=== PATIENT | male | born 1980 | race Caucasian/White ===

== ENCOUNTER 2017-09-13 18:38 | Emergency (ER) | payer SELFPAY ==
[2017-09-13] MEDS ORDERED: ONDANSETRON 4 MG TAB.RAPDIS PO ONE (19:50)
[2017-09-13] MEDS ORDERED: FAMOTIDINE 20 MG TABLET PO ONE (19:50)
[2017-09-13] MEDS ORDERED: RINGERS SOLUTION,LACTATED 1,000 ML IV ONE (19:52)
--- NOTE | 2017-09-13 19:52 | ER Document Report ---
ED Medical Screen (RME) - General Chief Complaint: Rectal Bleeding Stated Complaint: RECTAL BLEEDING Time Seen by Provider: 09/13/17 19:45 Notes: RAPID MEDICAL EVALUATION DISCLOSURE I have seen this patient as part of a Rapid Medical Evaluation and, if applicable, placed any initially appropriate orders. The patient will be seen and fully evaluated, including a full history and physical exam, by a provider ( in Main ED or Fast Track) when a room becomes available. 36-year-old male here with complaints of nausea and vomiting ongoing for the past few months and maroon colored blood in his stools over the past few days. Today he has been lightheaded and fatigued but has not passed out. He has a history of acid reflux and used to take daily medication many months ago but has taken it in several months. He denies any history of esophageal varices liver disease peptic ulcers. He does have a history of external hemorrhoids but states that it has not been flaring up. He denies abdominal pain. Does not take blood thinners. EXAM Minimally tachycardic No abdominal TTP TRAVEL OUTSIDE OF THE [place] IN LAST 30 DAYS: No - Related Data Allergies/Adverse Reactions: No Known Allergies Allergy (Verified 05/17/15 19:21) Past Medical History - Social History Chew tobacco use (# tins/day): No Frequency of alcohol use: None Drug Abuse: None - Past Medical History Cardiac Medical History: Denies: Hx Coronary Artery Disease, Hx Heart Attack, Hx Hypertension Pulmonary Medical History: Reports: Hx Asthma - A BABY Denies: Hx Bronchitis, Hx COPD, Hx Pneumonia Neurological Medical History: Denies: Hx Cerebrovascular Accident, Hx Seizures Renal/ Medical History: Denies: Hx Peritoneal Dialysis Musculoskeltal Medical History: Denies Hx Arthritis, Reports Hx Musculoskeletal Deformity, Reports Hx Musculoskeletal Trauma Traumatic Medical History: Reports: Hx Fractures Past Surgical History: Reports: Hx Orthopedic Surgery - Immunizations Immunizations up to date: Yes Hx Diphtheria, Pertussis, Tetanus Vaccination: Yes Physical Exam - Vital signs Vitals: Temp Pulse Resp BP Pulse Ox 99.1 F 107 H 18 142/99 H 100 09/13/17 18:44 09/13/17 18:44 09/13/17 18:44 09/13/17 18:44 09/13/17 18:44 Course - Vital Signs Vital signs: Temp Pulse Resp BP Pulse Ox 99.1 F 107 H 18 142/99 H 100 09/13/17 18:44 09/13/17 18:44 09/13/17 18:44 09/13/17 18:44 09/13/17 18:44
[2017-09-13 20:16] LABS: ABSOLUTE LYMPHOCYTES (AUTO) 2.3 10^3/uL (0.5-4.7); ABSOLUTE MONOCYTES (AUTO) 0.5 10^3/uL (0.1-1.4); ABSOLUTE NEUT (AUTO) 8.3 10^3/uL (1.7-8.2); BASOPHILS % (AUTO) 0.3 % (0-2); EOSINOPHILS % (AUTO) 0.4 % (0-6); HEMATOCRIT 46.9 % (37.9-51.0); HEMOGLOBIN 16.2 g/dL (13.5-17.0); LYMPHOCYTES % (AUTO) 20.3 % (13-45); MEAN CORPUSCULAR HEMOGLOBIN 31.7 pg (27.0-33.4); MEAN CORPUSCULAR HGB CONC 34.5 g/dL (32.0-36.0); MEAN CORPUSCULAR VOLUME 92 fl (80-97); MONOCYTES % (AUTO) 4.6 % (3-13); PLATELET COUNT 199 10^3/uL (150-450); RED CELL DISTRIBUTION WIDTH 13.2 % (11.5-14.0); SEGMENTED NEUTROPHILS % (AUTO) 74.4 % (42-78); TOTAL CELLS COUNTED % (AUTO) 100 %; WHITE BLOOD COUNT 11.1 10^3/uL (4.0-10.5)
[2017-09-13 20:22] LABS: INTERNATIONAL RATION (INR) 0.93; PROTHROMBIN TIME 12.9 SEC (11.4-15.4)
[2017-09-13 20:36] LABS: ALANINE AMINOTRANSFERASE 27 U/L (21-72); ALKALINE PHOSPHATASE 99 U/L (38-126); ANION GAP 14 (5-19); ASPARTATE AMINO TRANSFERASE 27 U/L (17-59); BILIRUBIN,DIRECT 0.4 mg/dL (0.0-0.4); BILIRUBIN,TOTAL 0.4 mg/dL (0.2-1.3); BLOOD UREA NITROGEN 20 mg/dL (7-20); CALCIUM 10.2 mg/dL (8.4-10.2); CARBON DIOXIDE 26 mmol/L (22-30); CHLORIDE 104 mmol/L (98-107); GLUCOSE 97 mg/dL (75-110); LIPASE 186.2 U/L (23-300); POTASSIUM 4.2 mmol/L (3.6-5.0); SODIUM 143.8 mmol/L (137-145); TOTAL PROTEIN 7.8 g/dL (6.3-8.2)
--- NOTE | 2017-09-13 20:46 | ER Document Report ---
ED GI/ - General Chief Complaint: Rectal Bleeding Stated Complaint: RECTAL BLEEDING Time Seen by Provider: 09/13/17 19:45 Notes: Patient is a 36-year-old male that comes emergency room for chief complaint of bright red blood per rectum, he states he has this frequently and has been having it on and off for a while, he states he has passed a few bowel movements with a couple of clots and some dark blood as well. Patient states that he also randomly will wake up in the morning, vomited, and then go about his normal day. Frequent vomiting only in the morning, does not have any difficulty eating or nausea/vomiting during the day. Denies fever or chills. He admits to intermittent constipation and increased straining with stools. He states he has some tiredness but denies dizziness or passing out. He takes naproxen daily for his left ankle which had a reconstruction. He takes no other medications. He smokes, denies alcohol or recreational drugs. Denies family history of polyp disorder or colon cancer. TRAVEL OUTSIDE OF THE [place] IN LAST 30 DAYS: No - Related Data Allergies/Adverse Reactions: No Known Allergies Allergy (Verified 05/17/15 19:21) Past Medical History - General Information source: Patient - Social History Smoking Status: Current Every Day Smoker Chew tobacco use (# tins/day): No Frequency of alcohol use: None Drug Abuse: None Lives with: Family Family History: Arthritis, CAD, CVA, DM, Hyperlipidemia, Hypertension, Malignancy Patient has suicidal ideation: No Patient has homicidal ideation: No - Past Medical History Cardiac Medical History: Denies: Hx Coronary Artery Disease, Hx Heart Attack, Hx Hypertension Pulmonary Medical History: Reports: Hx Asthma - A BABY Denies: Hx Bronchitis, Hx COPD, Hx Pneumonia Neurological Medical History: Denies: Hx Cerebrovascular Accident, Hx Seizures Renal/ Medical History: Denies: Hx Peritoneal Dialysis Musculoskeltal Medical History: Denies Hx Arthritis, Reports Hx Musculoskeletal Deformity, Reports Hx Musculoskeletal Trauma Traumatic Medical History: Reports: Hx Fractures Past Surgical History: Reports: Hx Orthopedic Surgery - Immunizations Immunizations up to date: Yes Hx Diphtheria, Pertussis, Tetanus Vaccination: Yes Review of Systems - Review of Systems Constitutional: No symptoms reported EENT: No symptoms reported Cardiovascular: No symptoms reported Respiratory: No symptoms reported Gastrointestinal: See HPI Genitourinary: No symptoms reported Male Genitourinary: No symptoms reported Musculoskeletal: No symptoms reported Skin: No symptoms reported Hematologic/Lymphatic: No symptoms reported Neurological/Psychological: No symptoms reported Physical Exam - Vital signs Vitals: Temp Pulse Resp BP Pulse Ox 99.1 F 107 H 18 142/99 H 100 09/13/17 18:44 09/13/17 18:44 09/13/17 18:44 09/13/17 18:44 09/13/17 18:44 Interpretation: Normal - General General appearance: Appears well In distress: None - HEENT Head: Normocephalic, Atraumatic Eyes: Normal Pupils: PERRL - Respiratory Respiratory status: No respiratory distress Chest status: Nontender Breath sounds: Normal. No: Decreased air movement, Wheezing Chest palpation: Normal - Cardiovascular Rhythm: Regular Heart sounds: Normal auscultation Murmur: No - Abdominal Inspection: Normal Distension: No distension Bowel sounds: Normal Tenderness: Nontender. No: Tender, Guarding - Rectal Tenderness: No Stool: Heme positive. No: Black, Bloody Hemorrhoids: Internal - at approximately 8 o clock position - Back Back: Normal, Nontender. No: Tender - Extremities General upper extremity: Normal inspection, Nontender, Normal strength, Normal temperature General lower extremity: Normal inspection, Nontender, Normal strength, Normal temperature - Neurological Neuro grossly intact: Yes Cognition: Normal Orientation: AAOx4 Brittany Coma Scale Eye Opening: Spontaneous Dale Coma Scale Verbal: Oriented Dale Coma Scale Motor: Obeys Commands Dale Coma Scale Total: 15 Speech: Normal Motor strength normal: LUE, RUE, LLE, RLE Sensory: Normal - Psychological Associated symptoms: Normal affect, Normal mood - Skin Skin Temperature: Warm Skin Moisture: Dry Skin Color: Normal Course - Re-evaluation Re-evalutation: Patient has reported symptoms very consistent with gastritis, vomiting in the morning, frequent naproxen use, he also smokes, eat a lot of spicy food, drinks a lot of caffeine. I discussed this, patient will be placed on medications for gastritis and given recommendations to avoid these kind of problems in the future. Laboratory workup was unremarkable. He does have blood in his stool microscopically but not grossly, he also has an internal hemorrhoid on exam. Patient has had trouble with bowel movements recently. Placed on stool softener discussed hemorrhoid treatments. Discussed primary care follow-up for both gastritis and hemorrhoids. Discussed gastroneurology referral. Discussed return precautions. Patient and family state understanding and agreement. - Vital Signs Vital signs: Temp Pulse Resp BP Pulse Ox 97.9 F 78 16 128/87 H 99 09/13/17 23:08 09/13/17 23:08 09/13/17 23:08 09/13/17 23:08 09/13/17 23:08 - Laboratory Result Diagrams: 09/13/17 20:06 09/13/17 20:06 Laboratory results interpreted by me: 09/13/17 20:06 WBC 11.1 H Absolute Neutrophils 8.3 H Discharge - Discharge Clinical Impression: Rectal bleeding Vomiting Qualifiers: Vomiting type: unspecified Vomiting Intractability: non-intractable Nausea presence: with nausea Qualified Code(s): R11.2 - Nausea with vomiting, unspecified Condition: Stable Disposition: HOME, SELF-CARE Additional Instructions: There is blood in your stool but on examination you have an internal hemorrhoid. This is most likely the cause of the bleeding. Recommendation is to take the Colace stool softener as prescribed, avoid any straining with bowel movement, eat a high fiber diet, stay hydrated. This typically resolves with time. In regards to the vomiting that he get in the more's, recommend treatment of gastritis/esophagitis/reflux, you can take the Prilosec as prescribed daily, you can also take the Pepcid as needed for upper abdominal symptoms/reflux. Consider stopping the naproxen as this can worsen gastritis, avoid other things that worsen gastritis including smoking, drinking alcohol, high levels of caffeine, other NSAIDs, spicy foods. Follow-up with primary care for additional evaluation and management. If bleeding continues in your stool follow-up with the gastroenterology referral. Return for any concerning or worsening symptoms including severe abdominal pain , heavy bleeding, passing out, vomiting blood, or any other concerning symptoms. Prescriptions: Docusate Sodium [Colace 100 mg Capsule] 100 mg PO ASDIR PRN #30 capsule PRN Reason: Famotidine [Pepcid 20 mg Tablet] 20 mg PO BID #20 tablet Omeprazole 40 mg PO DAILY #30 capsule. Referrals: GASTROENTEROLOGY [Provider Group] - Follow up as needed
[2017-09-13 23:11] VITALS: BP 128/87
== END 2017-09-13 23:10 | disposition home or self-care (01) ==
LOC: ER 18:38
DX: K62.5 Hemorrhage of anus and rectum (principal); R11.2 Nausea with vomiting, unspecified; F17.200 Nicotine dependence, unspecified, uncomplicated
CPT/HCPCS: 99283; 96360; 36415; 83690; 85025; 85610; 85730; 82272; 80053; S0119; J7120

== ENCOUNTER 2019-04-25 14:01 | Emergency (ER) | payer SELFPAY ==
[2019-04-25] MEDS ORDERED: OXYCODONE-ACETAMINOPHEN 5-325 MG TABLET PO ONE (14:09)
[2019-04-25] MEDS ORDERED: LIDOCAINE 1% INJ-PF (10 MG/ML) 30 ML SDV INJ ONE (14:10)
--- NOTE | 2019-04-25 14:29 | ER Document Report ---
ED Hand/Wrist Injury - General Chief Complaint: Hand Injury Stated Complaint: LEFT HAND PAIN Time Seen by Provider: 04/25/19 14:03 Primary Care Provider: CA SHARPE DO [ACTIVE STAFF] - Follow up as needed Mode of Arrival: Ambulatory Information source: Patient Notes: Otherwise healthy 38-year-old male presenting to the emergency department with laceration to the palmar surface of his right hand near the base of the fifth digit. Patient reports he was using a table saw when the saw slipped. Patient is unsure of Tdap is up-to-date. TRAVEL OUTSIDE OF THE [place] IN LAST 30 DAYS: No - Related Data Allergies/Adverse Reactions: No Known Allergies Allergy (Verified 05/17/15 19:21) Past Medical History - General Information source: Patient - Social History Smoking Status: Never Smoker Frequency of alcohol use: None Drug Abuse: None Family History: Arthritis, CAD, CVA, DM, Hyperlipidemia, Hypertension, Malign fer - Past Medical History Cardiac Medical History: Denies: Hx Coronary Artery Disease, Hx Heart Attack, Hx Hypertension Pulmonary Medical History: Reports: Hx Asthma - A BABY Denies: Hx Bronchitis, Hx COPD, Hx Pneumonia Neurological Medical History: Denies: Hx Cerebrovascular Accident, Hx Seizures Renal/ Medical History: Denies: Hx Peritoneal Dialysis Musculoskeletal Medical History: Denies Hx Arthritis, Reports Hx Musculoskeletal Deformity, Reports Hx Musculoskeletal Trauma Traumatic Medical History: Reports: Hx Fractures Past Surgical History: Reports: Hx Orthopedic Surgery - Immunizations Immunizations up to date: Yes Hx Diphtheria, Pertussis, Tetanus Vaccination: Yes Review of Systems - Review of Systems Constitutional: No symptoms reported EENT: No symptoms reported Cardiovascular: No symptoms reported Respiratory: No symptoms reported Gastrointestinal: No symptoms reported Genitourinary: No symptoms reported Male Genitourinary: No symptoms reported Musculoskeletal: See HPI Skin: See HPI Hematologic/Lymphatic: No symptoms reported Neurological/Psychological: No symptoms reported Physical Exam - Vital signs Vitals: Temp Pulse Resp BP Pulse Ox 97.3 F 114 H 18 147/102 H 99 04/25/19 14:03 04/25/19 14:03 04/25/19 14:03 04/25/19 14:03 04/25/19 14:03 - Notes Notes: PHYSICAL EXAMINATION: GENERAL: Well-appearing, well-nourished and in no acute distress. HEAD: Atraumatic, normocephalic. EYES: Pupils equal round extraocular movements intact, conjunctiva are normal. ENT: Nares patent NECK: Normal range of motion LUNGS: No respiratory distress Musculoskeletal: Limited range of motion to right fifth digit. Significant swelling to the right hand along the fourth and fifth metacarpal area. Cap refill less than 3 seconds, slightly limited sensation to the tip of the fifth digits although there is some sensation. Limited flexion to the fifth digit. NEUROLOGICAL: Normal speech, normal gait. PSYCH: Normal mood, normal affect. SKIN: Extensive laceration to right hand that encompasses the fifth digit down into the hand. This is gaping open, there is active bleeding, the wound does not approximate well. Course - Re-evaluation Re-evalutation: Hand X-Ray 04/25/19 14:04 IMPRESSION: Comminuted fracture involving the distal 5th metacarpal and proximal phalanx with associated subluxation. There is volar and medial subluxation of the phalanx in relation to the metacarpal. Associated soft tissue laceration and swelling. 04/25/19 14:[address] Sharpe, orthopedic surgeon net web application developer, he would like primary closure to be done after wound irrigation. He will come and see the patient in the department. Wound anesthetized with 1% lidocaine, while irrigating the wound, a large congealed clot dislodged and I noticed that there was an arterial bleed. My attending came to the room to evaluate the patient. It appears there is a superficial palmar arch bleed. Pressure was applied. Reconsulted hand surgeon, Dr. Sharpe to update on patient's status including the new information of the arterial bleed. 04/25/19 15:38 After continuing to apply pressure, wound continues to bleed, gauze soaked TXA was applied, new pressure dressing was applied. After Dr. Bobo again evaluated the patient she consulted Dr. Sharpe to update him that I would not be able to do the preliminary closure due to continuous bleeding. Dr. Sharpe came to the bedside, he used cautery to stop a small area of bleeding. I then proceeded with preliminary closure of the wound with plans for patient to follow-up with Dr. Sharpe as an outpatient in his office on . During the closure, an additional small area of bleeding was noted, we attempted to stop this with the quick clot gauze but unfortunately that did not completely stop the bleed. Surgifoam was then applied which did successfully stop the bleed. The primary closure of the areas that were able to be closed was completed. Wound was then dressed, splint applied. Patient will also be s tarted on oral antibiotics. He received a dose of IV antibiotics here in the emergency department. Strict ED return precautions were discussed with patient and . - Vital Signs Vital signs: Temp Pulse Resp BP Pulse Ox 97.8 F 95 16 131/87 H 96 04/25/19 18:48 04/25/19 18:48 04/25/19 18:48 04/25/19 18:48 04/25/19 18:48 Procedures - Immobilization Right hand Pre-Proc Neuro Vasc Exam: Normal Immobilizer type: Cock-up Performed by: PCT Post-Proc Neuro Vasc Exam: Unchanged from pre-exam - Laceration/Wound Repair Right hand/fifth digit Wound length (cm): 6 - Irregular Wound's Depth, Shape: Irregular, Contused tissue Laceration pre-procedure: Sterile PPE donned Anesthetic type: 1% Lidocaine Wound explored: Clean Wound Repaired With: Sutures Suture Size/Type: 4:0 Post-procedure wound care: Splint applied Post-procedure NV exam normal: Yes - Unchanged from previous Critical Care Note - Critical Care Note Total time excluding time spent on procedures (mins): 35 - Multiple re- evaluations of extensive hand laceration including hemorrhage control. Discharge - Discharge Clinical Impression: Open fracture of right hand Qualifiers: Encounter type: initial encounter Qualified Code(s): S62.91XB - Unspecified fracture of right wrist and hand, initial encounter for open fracture Condition: Stable Disposition: HOME, SELF-CARE Additional Instructions: You are seen in the emergency department today and diagnosed with an open fracture with tendon injury to your right hand. The orthopedic surgeon, Dr. Sharpe came here and saw you. He wants you to follow-up in his [place] office . Please call them tomorrow and let them know you were seen in the emergency department and that Dr. Sharpe wants you to have an appointment and that you are an ER follow-up with patient. He wants you to keep the dressing in place and the splint in place until seen by him. Take the pain medication as prescribed. You can also take ibuprofen 600 mg every 6 hours. It is very important for you to take the antibiotics as prescribed. If any additional bleeding occurs please apply direct pressure, elevate the extremity and recheck the bleeding in 20 to 30 minutes. If at any point in time you have bleeding and are concerned please return to the emergency department for reevaluation. Prescriptions: Amox Tr/Potassium Clavulanate [Augmentin 875-125 mg Tablet] 1 tab PO BID #14 tablet Oxycodone HCl/Acetaminophen [Percocet 5-325 mg Tablet] 1 tab PO Q4H PRN #15 tab PRN Reason: Referrals: CA SHARPE DO [ACTIVE STAFF] - Follow up as needed
[2019-04-25] MEDS ORDERED: CEFAZOLIN 2 GM/D5W RTU 2 GM/50 ML RTUPB IV ONE (14:34)
--- NOTE | 2019-04-25 14:40 | RADIOLOGY REPORT (SQ) ---
EXAM DESCRIPTION: HAND RIGHT 3 VIEWS COMPLETED DATE/TIME: 04/25/2019 2:27 pm REASON FOR STUDY: laceration COMPARISON: None. EXAM PARAMETERS: NUMBER OF VIEWS: Three views. TECHNIQUE: AP, lateral and oblique radiographic images acquired of the right hand. LIMITATIONS: None. FINDINGS: MINERALIZATION: Normal. BONES: Comminuted fracture involving the distal 5th metacarpal and proximal phalanx with associated s ubluxation. There is volar and medial subluxation of the phalanx in relation to the metacarpal. No additional fractures identified. JOINTS: Fracture dislocation as above. SOFT TISSUES: Soft tissue laceration and swelling about the 5th MCP joint. OTHER: No other significant finding. IMPRESSION: Comminuted fracture involving the distal 5th metacarpal and proximal phalanx with associ ated subluxation. There is volar and medial subluxation of the phalanx in relation to the metacarpal . Associated soft tissue laceration and swelling. TECHNICAL DOCUMENTATION: JOB ID: [id number] [employer]- All Rights Reserved Reading location - IP/workstation name: [email or web address]
[2019-04-25] MEDS ORDERED: TRANEXAMIC ACID INJ/PF 1,000 MG/10 ML SDV TOP ONE (15:28)
[2019-04-25] MEDS ORDERED: CEFAZOLIN SODIUM 2 GM in DEXTROSE 5%-WATER 100 ML INJ ONE (15:30)
[2019-04-25] MEDS ORDERED: MORPHINE SULFATE 10 MG/ML INJ IV ONE ×2 (15:38→16:50)
--- NOTE | 2019-04-25 16:46 | PDOC CONSULTATION ---
Consultation Consult Date: 04/25/19 Attending physician:: HONEY VAIL Provider Consulted: CA SHARPE History of Present Illness Patient complains of: Right hand injury History of Present Illness: BALBINA ROBERT is a 38 year old male [id number] male presents emergency room after sustaining a injury at work. Patient is self-employed and subsequently his table saw buckled resulting in laceration and injury to his right hand. He was seen at the emergency room where area was gently irrigated there was notable bleeding distally along the digit. Patient notes numbness and tingling on the finger. Obvious pain with any attempted motion. Pain 5/5. Past Medical History Cardiac Medical History: Denies: Coronary Artery Disease, Myocardial Infarction, Hypertension Pulmonary Medical History: Reports: Asthma - A BABY Denies: Bronchitis, Chronic Obstructive Pulmonary Disease (COPD), Pneumonia Neurological Medical History: Denies: Seizures Musculoskeltal Medical History: Denies: Arthritis Hematology: Denies: Anemia Past Surgical History Past Surgical History: Reports: Orthopedic Surgery Social History Smoking Status: Never Smoker Family History Family History: Arthritis, CAD, CVA, DM, Hyperlipidemia, Hypertension, Malignancy Parental Family History Reviewed: No Children Family History Reviewed: No Sibling(s) Family History Reviewed.: No Medication/Allergy Home Medications: Ibuprofen 800 mg PO ASDIR PRN 05/24/15 Oxycodone HCl/Acetaminophen [Percocet 5-325 mg Tablet] 1 - 2 tab PO ASDIR PRN 05/24/15 Docusate Sodium [Colace 100 mg Capsule] 100 mg PO ASDIR PRN #30 capsule 09/13/17 Famotidine [Pepcid 20 mg Tablet] 20 mg PO BID #20 tablet 09/13/17 Omeprazole 40 mg PO DAILY #30 capsule. 09/13/17 Allergies/Adverse Reactions: No Known Allergies Allergy (Verified 05/17/15 19:21) Review of Systems Constitutional: ABSENT: chills, fever(s), headache(s), weight gain, weight loss Eyes: ABSENT: visual disturbances Ears: ABSENT: hearing changes Cardiovascular: ABSENT: chest pain, dyspnea on exertion, edema, orthropnea, palpitations Respiratory: ABSENT: cough, hemoptysis Gastrointestinal: ABSENT: abdominal pain, constipation, diarrhea, hematemesis, hematochezia, nausea, vomiting Genitourinary: ABSENT: dysuria, hematuria Musculoskeletal: PRESENT: as per HPI Integumentary: ABSENT: rash, wounds Neurological: ABSENT: abnormal gait, abnormal speech, confusion, dizziness, focal weakness, syncope Psychiatric: ABSENT: anxiety, depression, homidical ideation, suicidal ideation Endocrine: ABSENT: cold intolerance, heat intolerance, menstrual abnormalities, polydipsia, polyuria Hematologic/Lymphatic: ABSENT: easy bleeding, easy bruising, lymphadenopathy Physical Exam Vital Signs: Temp Pulse Resp BP Pulse Ox 97.3 F 114 H 18 147/102 H 99 04/25/19 14:03 04/25/19 14:03 04/25/19 14:03 04/25/19 14:03 04/25/19 14:03 Intake & Output 04/24/19 04/25/19 04/26/19 06:59 06:59 06:59 Weight 68.039 kg General appearance: PRESENT: no acute distress, well-developed, well-nourished Head exam: PRESENT: atraumatic, normocephalic Eye exam: PRESENT: conjunctiva pink, EOMI, PERRLA. ABSENT: scleral icterus Ear exam: PRESENT: normal external ear exam Mouth exam: PRESENT: moist, tongue midline Neck exam: PRESENT: full ROM. ABSENT: carotid bruit, JVD, lymphadenopathy, thyromegaly Respiratory exam: PRESENT: unlabored Cardiovascular exam: PRESENT: RRR. ABSENT: diastolic murmur, rubs, systolic murmur Pulses: PRESENT: normal dorsalis pedis pul, +2 pedal pulses bilateral Vascular exam: PRESENT: normal capillary refill GI/Abdominal exam: PRESENT: normal bowel sounds, soft. ABSENT: distended, guarding, mass, organolmegaly, rebound, tenderness Rectal exam: PRESENT: deferred Musculoskeletal exam: PRESENT: other - Right hand: Complex laceration extending from the volar ulnar aspect of the hand just proximal to the distal palmar crease extending in a ulnar direction and dorsally longitudinally along the dorsum of the proximal phalanx. Intact flexion/extension of the DIP joint however weak. Cap refill less than 2 seconds. Normal skin turgor. No active arterial bleeding there is venous bleeding noted dorsally along the PIP joint. Patient lacks two-point discrimination along the ulnar digital nerve distribut ion. Neurological exam: PRESENT: alert, awake, oriented to person, oriented to place, oriented to time, oriented to situation, CN II-XII grossly intact. ABSENT: motor sensory deficit Psychiatric exam: PRESENT: appropriate affect, normal mood. ABSENT: homicidal ideation, suicidal ideation Skin exam: PRESENT: dry, intact, warm. ABSENT: cyanosis, rash Results Impressions: Hand X-Ray 04/25/19 14:04 IMPRESSION: Comminuted fracture involving the distal 5th metacarpal and proximal phalanx with associated subluxation. There is volar and medial subluxation of the phalanx in relation to the metacarpal. Associated soft tissue laceration and swelling. Status: Image reviewed by me - I have reviewed patient's radiographs consistent with comminuted intra-articular fracture along the small finger PIP joint with bone loss Assessment & Plan - Diagnosis (1) Open fracture of fifth metacarpal bone of right hand Qualifiers: Encounter type: initial encounter Metacarpal location: neck Fracture alignment: displaced Qualified Code(s): S62.336B - Displaced fracture of neck of fifth metacarpal bone, right hand, initial encounter for open fracture Is this a current diagnosis for this admission?: Yes Plan: Patient sustained table saw injury involving the fifth MCP joint with comminution and significant bone loss along the proximal phalanx base but the metacarpal head and neck. Given the bone loss joint salvage this probably limited which could result in permanent stiffness and degenerative changes along with chronic pain however interpositional arthroplasty or fusion remain a possibility to provide if salvageable digit and function last option includes amputation. At this point patient will have the area irrigated in the emergency room and loosely reapproximated. Patient will be placed in a ulnar gutter splint and started on p.o. antibiotics. We discussed his treatment options he will consider his options and follow-up with me in the office 04/28/2019 determine appropriate operative direction. Currently I do not feel there is urgency or emergency to proceed with operative treatment given his intact backslash status and limited wound contamination. Patient will follow-up as an outpatient however he notices increasing pain swelling bleeding or issues he may contact my office to be seen sooner.
[2019-04-25] MEDS ORDERED: AMOXICILLIN TRIHYDRATE 500 MG CAPSULE PO ONE (18:16)
[2019-04-25] MEDS ORDERED: AMOXICILLIN TR/POT CLAVULANATE 500-125 MG TAB PO ONE (18:16)
[2019-04-25] MEDS ORDERED: HYDROCODONE/ACETAMINOPHEN 5-325 MG (6 TAB/ER DISP) PO PRN (18:17)
[2019-04-25 18:50] VITALS: BP 131/87
== END 2019-04-25 18:50 | disposition home or self-care (01) ==
LOC: ER 14:01
DX: S62.306B Unspecified fracture of fifth metacarpal bone, right hand, initial encounter for open fracture (principal); S62.616B Displaced fracture of proximal phalanx of right little finger, initial encounter for open fracture; W29.8XXA Contact with other powered hand tools and household machinery, initial encounter; Y93.89 Activity, other specified
CPT/HCPCS: 96376; 99284; 96375; 96365; 73130; 12002; J0690; J2270; J7060; J3490

== ENCOUNTER 2019-05-02 14:27 | Day surgery (SDC) | payer MEDICAID ==
[~2019-05-02 14:27] MED LIST: BUPIVACAINE HCL 0.5 % INJ/PF 30 ML SDV ONE; CEFAZOLIN SODIUM 2 GM in DEXTROSE 5%-WATER 100 ML IV PRN; LIDOCAINE 1% INJ-PF (10 MG/ML) 30 ML SDV ONE
[2019-05-02 15:12] LABS: ABSOLUTE EOSINOPHILS # (AUTO) 0.1 10^3/uL (0.0-0.6); ABSOLUTE LYMPHOCYTES (AUTO) 2.2 10^3/uL (0.5-4.7); ABSOLUTE MONOCYTES (AUTO) 0.4 10^3/uL (0.1-1.4); ABSOLUTE NEUT (AUTO) 6.4 10^3/uL (1.7-8.2); BASOPHILS % (AUTO) 0.5 % (0-2); EOSINOPHILS % (AUTO) 0.8 % (0-6); HEMATOCRIT 40.6 % (37.9-51.0); HEMOGLOBIN 14.1 g/dL (13.5-17.0); LYMPHOCYTES % (AUTO) 24.7 % (13-45); MEAN CORPUSCULAR HEMOGLOBIN 33.3 pg (27.0-33.4); MEAN CORPUSCULAR HGB CONC 34.8 g/dL (32.0-36.0); MEAN CORPUSCULAR VOLUME 96 fl (80-97); MONOCYTES % (AUTO) 4.3 % (3-13); PLATELET COUNT 210 10^3/uL (150-450); RED BLOOD COUNT 4.24 10^6/uL (4.35-5.55); RED CELL DISTRIBUTION WIDTH 12.7 % (11.5-14.0); SEGMENTED NEUTROPHILS % (AUTO) 69.7 % (42-78); TOTAL CELLS COUNTED % (AUTO) 100 %; WHITE BLOOD COUNT 9.1 10^3/uL (4.0-10.5)
[2019-05-02] MEDS ORDERED: MIDAZOLAM 2 MG/2 ML INJ ONE (15:21)
[2019-05-02] MEDS ORDERED: FENTANYL CITRATE INJ/PF 100 MCG/2 ML AMPUL ONE (15:21)
[2019-05-02] MEDS ORDERED: ONDANSETRON HCL INJ/PF 4 MG/2 ML SDV ONE (15:21)
[2019-05-02] MEDS ORDERED: DEXAMETHASONE SOD PHOSPHATE INJ 4 MG/1 ML VIAL ONE (15:21)
[2019-05-02] MEDS ORDERED: PROPOFOL INJ 200 MG/20 ML VIAL IV ONE (15:21)
[2019-05-02 15:33] LABS: ANION GAP 10 (5-19); BLOOD UREA NITROGEN 16 mg/dL (7-20); CALCIUM 9.7 mg/dL (8.4-10.2); CARBON DIOXIDE 27 mmol/L (22-30); CHLORIDE 104 mmol/L (98-107); GLUCOSE 87 mg/dL (75-110); POTASSIUM 4.3 mmol/L (3.6-5.0)
[2019-05-02] MEDS ORDERED: DIPHENHYDRAMINE HCL 50 MG/ML VIAL IV PRN (17:09)
[2019-05-02] MEDS ORDERED: MEPERIDINE HCL/PF INJ 25 MG/1 ML DISP.SYRIN IV PRN (17:09)
[2019-05-02] MEDS ORDERED: FENTANYL CITRATE INJ/PF 100 MCG/2 ML AMPUL IV PRN ×3 (17:09)
[2019-05-02] MEDS ORDERED: MORPHINE SULFATE 10 MG/ML INJ IV PRN (17:09)
[2019-05-02] MEDS ORDERED: PROMETHAZINE HCL INJ 25 MG/1 ML VIAL IV PRN ×2 (17:09)
[2019-05-02] MEDS ORDERED: ONDANSETRON HCL INJ/PF 4 MG/2 ML SDV IV PRN (17:09)
[2019-05-02] MEDS ORDERED: OXYCODONE-ACETAMINOPHEN 5-325 MG TABLET PO PRN (18:37)
--- NOTE | 2019-05-02 18:38 | Discharge Summary ---
Discharge Summary (SDC) - Discharge Final Diagnosis: Right hand open fracture fifth MCP joint with tendon laceration, nerve laceration Date of Surgery: 05/02/19 Discharge Date: 05/02/19 Condition: Good Treatment or Instructions: Schedule Follow Up w/ Dr. Dick Rasmussen @ [facility] to be seen in 10-14 days or as scheduled [place]: [place]: [place]: May remove dressing on postop day #3, keep incision covered and dry. Ice and elevate May begin finger range of motion attempting to make full fist. Stool softener of choice when on pain medication. USE OF [id number] IBUPROFEN: Ibuprofen (Advil, Nuprin, Medipren, Motrin IB) is a medication for fever and pain control. In addition, it has anti- inflammatory effects which may be beneficial, especially in the treatment of injuries. It's best to take ibuprofen with food. Persons with ulcer disease or allergy to aspirin should notify their physician of this before taking ibuprofen. Ibuprofen can be given every four to six hours, for a total of four doses daily. Age Pain or fever dose Antiinflammatory dose 6-8 yr 200 mg (1 tab) 200 mg (1 tab) 9-11 yr 200 mg (1 tab) 200-400 mg (1-2 tab) 11-14 yr 200-400 mg (1-2 tab) 400 mg (2 tab) 15-adult 400 mg (2 tab) 600 mg (3 tab) ORAL NARCOTIC MEDICATION: You have been given a prescription for pain control. This medication is a narcotic. It's best taken with food, as nausea can result if taken on an empty stomach. Don't operate machinery or drive within six hours of taking this medication. Do not combine this medicine with alcohol, or with any medication which can cause sedation (such as cold tablets or sleeping pills) unless you get permission from the physician. Narcotics tend to cause constipation. If possible, drink plenty of fluids and eat a diet high in fiber and fruits. Please be aware that prescription narcotics also have the potential for abuse. People become addicted to these medications because of the general sense of wellbeing that they induce. This feeling along with a significant reduction in tension, anxiety, and aggression provides a stimulating seductive quality to these drugs. Once your pain is under control, we encourage you to discard your unused narcotics. Prescriptions: Ketorolac Tromethamine [Toradol 10 mg Tablet] 10 mg PO Q8HP PRN #12 tablet PRN Reason: Oxycodone HCl/Acetaminophen [Percocet 7.5-325 mg Tablet] 1 each PO Q6 PRN #25 tablet PRN Reason: Discharge Diet: As Tolerated Respiratory Treatments at Home: Deep Breathing/Coughing Discharge Activity: No Lifting Over 10 Pounds, No Lifting/Push/Pulling Report the Following to Your Physician Immediately: Fever over 101 Degrees, Unusual Bleeding, Redness, Swelling, Warmth, Increased Soreness
--- NOTE | 2019-05-02 18:41 | Operative Report ---
Operative Report DATE OF SURGERY: 05/02/19 PREOPERATIVE DIAGNOSIS: Right hand open fracture fifth MCP joint with tendon la ceration, nerve laceration POSTOPERATIVE DIAGNOSIS: Same OPERATION: Right fifth ray resection SURGEON: CA SHARPE ANESTHESIA: GA COMPLICATIONS: None ESTIMATED BLOOD LOSS: Minimal PROCEDURE: Indication for above procedure: 38-year-old male who sustained a table saw injury to his fifth MCP joint. He was seen in the emergency room where findings were consistent with digital nerve, digital artery and tendon involvement however patient continued had viability of the distal tip. Given the severity of the joint we discussed treatment options including salvage procedure of the fifth MCP joint, tendon and nerve versus ray amputation. Risk and benefits of each were explained patient verbalized understanding and consented for fifth ray resection. Procedure In Detail: Patient was seen and evaluated in the preoperative holding area. The right upper extremity was initialized and marked. Patient received 2g of Ancef IV for bacterial prophylaxis. Patient was taken back to the operative room where transferred to the operative table and placed under general anesthesia. Once they were adequately anesthetized a nonsterile tourniquet was placed on the upper extremity. A surgical team debriefing was performed ensuring all instrumentation was available, the surgical procedure was discussed with possible concerns reviewed. The upper extremity was prepped with Betadine and draped in a sterile fashion. A timeout was done identifying correct patient, procedure and extremity everyone in attendance agree with this and verbalized no concerns. The extremity was exsanguinated the tourniquet was inflated to 250 mmHg. Patient's volar laceration was incorporated into V-shaped chevron incision. This was then extended radially at the fourth/fifth web space then extended longitudinally and dorsally along the fifth metacarpal. Blunt dissection was performed volarly. The radial digital nerve of the small finger was identified and neurectomy performed salvaging the ulnar digital nerve to the ring finger. Ulnar digital nerve to the small finger was isolated and neurectomy performed proximal to the incision line. Digital arteries were identified and coagulated. Flexor tendon was transected and the volar plate excised. There was significant comminution along the MCP joint with 75% bone loss along the proximal phalanx and 60% bone loss of the metacarpal head. The dorsal soft tissues including capsule and extensor tendon were then excised completing amputation of the digit at the MCP joint. Blunt dissection was performed around the proximal aspect of the fifth metacarpal the insertion of the ECU was identified and osteotomy was made distal to the insertion in an oblique manner. Bone edges were contoured to avoid postoperative skin irritation. Wound was then copiously irrigated with normal saline. Tourniquet was deflated. Any peripheral bleeding was controlled with bipolar cautery until the wound was dry. Subcutaneous tissues were reapproximated with 4-0 Monocryl suture. Skin was closed with interrupted 4-0 nylon suture. 30 cc of 0.5% bupivacaine without epinephrine was injected for postoperative pain control. Wound was dressed Xeroform for fours and a soft dressing. Sponge counts, instrument counts, needle counts were correct. Patient was then awoken from anesthesia. Transferred from the operating room table to the operating room stretcher. There was no intraoperative complications patient tolerated procedure well stable to PACU. Postoperative plan: Patient follow-up in the office in 2 weeks for wound check. We will begin immediate digit range of motion.
[2019-05-02] MEDS ORDERED: KETOROLAC TROMETHAMINE INJ/PF 30 MG/1 ML SDV ONE (18:43)
[2019-05-02] MEDS: FENTANYL CITRATE INJ/PF 100 MCG/2 ML AMPUL ONE ×2 (18:44→18:50)
[2019-05-02] MEDS ORDERED: ACETAMINOPHEN 1,000 MG/100 ML RTUPB IV ONE (19:02)
[2019-05-02] MEDS ORDERED: HYDROMORPHONE HCL INJ/PF 2 MG/ML AMPULE ONE (19:17)
[2019-05-02] MEDS ORDERED: OXYCODONE-ACETAMINOPHEN 5-325 MG TABLET ONE (19:43)
[2019-05-02 20:51] VITALS: BP 139/87
== END 2019-05-02 20:50 | disposition home or self-care (01) ==
LOC: OROUT 14:27
PROVIDERS: ATTEND Orthopaedic Surgery
DX: S66.126A Laceration of flexor muscle, fascia and tendon of right little finger at wrist and hand level, initial encounter (principal); S64.496A Injury of digital nerve of right little finger, initial encounter; S63.266A Dislocation of metacarpophalangeal joint of right little finger, initial encounter; S62.307B Unspecified fracture of fifth metacarpal bone, left hand, initial encounter for open fracture; W31.2XXA Contact with powered woodworking and forming machines, initial encounter; F17.210 Nicotine dependence, cigarettes, uncomplicated
CPT/HCPCS: 26910; 36415; 87070; 85025; 80048; 01830; J2250; J3490; J0690; J1100; J3010; J1885; J1170; J2405; J7060; J2704; J0131; 1830; 87205